=== PATIENT | female | born 1970 ===

== ENCOUNTER 2017-04-30 11:48 | Emergency (ER) | payer OTHER ==
[2017-04-30 12:00] VITALS: RESP 20
[2017-04-30] MEDS ORDERED: Sodium Chloride 0.9% 1,000 ML IV ONE (12:52)
[2017-04-30 12:54] LABS: BASO # 0.1 K/uL (0.0-0.2); BASO % 0.7 % (0.0-2.0); EOS # 0.2 K/uL (0.0-0.7); EOS % 2.6 % (0.0-4.0); HEMATOCRIT 36.7 % (34.0-47.0); LYMPH % 23.6 % (20.0-40.0); MEAN CORPUSCULAR HGB CONC 31.7 g/dL (33.0-37.0); MEAN PLATELET VOLUME 9.4 fL (7.2-11.7); MONO # 0.4 K/uL (0.0-0.8); RED CELL DISTRIBUTION WIDTH 13.1 % (11.5-14.5); WHITE BLOOD COUNT 8.4 K/uL (4.8-10.8)
[2017-04-30 12:57] LABS: MEAN CELL VOLUME 81.8 fL (81.0-99.0)
--- NOTE | 2017-04-30 13:03 | C.PDOC ---
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 Patient states she was getting up to go to the bathroom today and felt hot with associated sweating followed by a syncope episode. Patient had a hysterectomy on 04/21/17 by a Doctor in [place]. Patient called PMD who thought symptoms could relate to surgery and advised she come to ED for evaluation. Patient denies fever, chest pain, leg swelling and patient is eating and drinking normally Time Seen by Provider: 04/30/17 12:25 Chief Complaint (Nursing): Syncope History Per: Patient History/Exam Limitations: no limitations Onset/Duration Of Symptoms: Days Current Symptoms Are (Timing): Still Present Number Of Syncopal Episodes: 1 Activity At Onset Of Symptoms: Walking Seizure Or Post-ictal Symptoms: None Possible Causative Factor(s): Other (recent surgery) Severity: Mild Pain Scale Rating Of: 0 Past Medical History Reviewed: Historical Data, Nursing Documentation, Vital Signs Vital Signs: Last Vital Signs Temp 98 F 04/30/17 11:56 Pulse 80 04/30/17 11:56 Resp 20 04/30/17 11:56 BP 114/74 04/30/17 11:56 Pulse Ox 99 04/30/17 15:03 - Medical History PMH: Anemia Surgical History: Cholecystectomy Other Surgeries: hysterectomy, BTO 04/21 Family History: States: Unknown Family Hx - Social History Hx Tobacco Use: No Hx Alcohol Use: No Hx Substance Use: No - Immunization History Hx Tetanus Toxoid Vaccination: No Hx Influenza Vaccination: No Hx Pneumococcal Vaccination: No Review Of Systems Except As Marked, All Systems Reviewed And Found Negative. Constitutional: Negative for: Fever, Chills Cardiovascular: Negative for: Chest Pain Respiratory: Negative for: Shortness of Breath Neurological: Positive for: Headache Physical Exam - Physical Exam Appears: Non-toxic, No Acute Distress Skin: Normal Color, Warm Head: Atraumatic, Normacephalic Eye(s): bilateral: Normal Inspection Oral Mucosa: Moist Throat: Normal Neck: Normal Cardiovascular: Rhythm Regular, No Murmur Respiratory: Normal Breath Sounds, No Rales, No Rhonchi, No Wheezing Gastrointestinal/Abdominal: Soft, No Tenderness, No Guarding, No Rebound, Other (Suprapubic Incision Healing well) Extremity: Normal ROM, Capillary Refill (<2 seconds) Neurological/Psych: Oriented x3, Normal Speech, Normal Cognition Gait: Steady ED Course And Treatment - Laboratory Results Result Diagrams: 04/30/17 12:35 04/30/17 12:35 Lab Interpretation: Normal ECG: Interpreted By In ECG Rhythm: Sinus Rhythm ECG Interpretation: Normal Rate From EC O2 Sat by Pulse Oximetry: 99 (RA) Pulse Ox Interpretation: Normal - Radiology CXR: Interpreted by In CXR Interpretation: Yes: No Acute Disease - CT Scan/US No standard instances Other Rad Studies (CT/US): Read By Radiologist, Radiology Report Reviewed CT/US Interpretation: FINDINGS: LOWER THORAX: Unremarkable. LIVER: Unremarkable. No gross lesion or ductal dilatation. GALLBLADDER AND BILE DUCTS : Unremarkable. PANCREAS: Unremarkable. No gross lesion or ductal dilatation. SPLEEN: Unremarkable. ADRENALS: Unremarkable. No mass. KIDNEYS AND URETERS: 3-4 mm calculus in the upper pole left kidney and in the lower pole left kidney. No evidence of urinary tract obstruction. No right renal calculus. Rounded hyperdense structure in the upper pole left kidney, 11 mm diameter. Possible hyperdense cyst. Recommend correlation with ultrasound examination on a nonemergent basis. No other renal mass. VASCULATURE: Unremarkable. No aortic aneurysm. BOWEL: Mild sigmoid diverticulosis. Scattered colonic diverticulae elsewhere. No evidence of diverticulitis. No bowel obstruction. APPENDIX: Unremarkable. Normal appendix. PERITONEUM: Unremarkable. No free fluid. No free air. LYMPH NODES: Unremarkable. No enlarged lymph nodes. BLADDER: Unremarkable. REPRODUCTIVE: Unremarkable uterus. BONES: No acute fracture. OTHER FINDINGS: None. IMPRESSION: Two nonobstructing left renal calculi. 11 mm rounded hyperdense lesion in the upper pole left kidney, possibly hyperdense cyst. Correlate with ultrasound examination on a nonemergent basis. Scattered colonic diverticulae. No evidence of diverticulitis. No other significant abnormality. Progress Note: Treated with IVF NSS, reglan and meclizine. On re-evaluation feeling better, ambulating with steady gait Reassessment Condition: Improved Medical Decision Making Medical Decision Making: Plan: Labs, CT scan and Fluids Disposition Counseled Patient/Family Regarding: Studies Performed, Diagnosis, Need For Followup, Rx Given - Disposition Referrals: Manish Campoverde, YU, CHIEF COMMERCIAL OFFICER [Advanced Practice Nurse] - Disposition: HOME/ ROUTINE Disposition Time: 15:15 Condition: STABLE Additional Instructions: Follow up with PMD Return to ED if any increase symptoms Instructions: Syncope (ED), Lightheadedness (ED) - POA Present On Arrival: None - Clinical Impression Clinical Impression: Syncope, Dizziness - PA / GOLDSMITH APPRENTICE / Resident Statement MD/DO has reviewed & agrees with the documentation as recorded. - Scribe Statement The provider has reviewed the documentation as recorded by the Sarinaibjhoana Torre All medical record entries made by the Sarinaibjhoana were at my direction and personally dictated by me. I have reviewed the chart and agree that the record accurately reflects my personal performance of the history, physical exam, medical decision making, and the department course for this patient. I have also personally directed, reviewed, and agree with the discharge instructions and disposition.
[2017-04-30 13:09] LABS: CHLORIDE 98 mmol/L (98-107)
[2017-04-30 13:10] LABS: POTASSIUM 3.8 mmol/L (3.6-5.2); SODIUM 135 mmol/L (132-148)
[2017-04-30 13:13] LABS: ALB/GLOB RATIO 1.3 (1.0-2.1); ALKALINE PHOSPHATASE 64 U/L (38-126); ALT/SGPT 51 U/L (9-52); AST/SGOT 24 U/L (14-36); BILIRUBIN,TOTAL 0.6 mg/dL (0.2-1.3); BLOOD UREA NITROGEN 13 mg/dL (7-17); CALCIUM 9.7 mg/dl (8.6-10.4); CARBON DIOXIDE 23 mmol/L (22-30); GFR AFRICAN-AMERICAN > 60; GLUCOSE,RANDOM 106 mg/dL (65-105); TOTAL PROTEIN 7.7 g/dL (6.3-8.3)
--- NOTE | 2017-04-30 13:45 | CT ---
PROCEDURE: CT HEAD WITHOUT CONTRAST. HISTORY: headache COMPARISON: 11/23/2016 TECHNIQUE: Axial computed tomography images were obtained through the head/brain without intravenous contrast. Radiation dose: Total exam DLP = 717.42 mGy-cm. This CT exam was performed using one or more of the following dose reduction techniques: Automated exposure control, adjustment of the mA and/or kV according to patient size, and/or use of iterative reconstruction technique. FINDINGS: HEMORRHAGE: No intracranial hemorrhage. BRAIN: No mass effect or edema. No atrophy or chronic microvascular ischemic changes. VENTRICLES: Unremarkable. No hydrocephalus. CALVARIUM: Unremarkable. PARANASAL SINUSES: Unremarkable as visualized. No significant inflammatory changes. MASTOID AIR CELLS: Unremarkable as visualized. No inflammatory changes. OTHER FINDINGS: None. IMPRESSION: No evidence of acute intracranial hemorrhage. Unremarkable head CT examination.
--- NOTE | 2017-04-30 13:58 | RAD ---
HISTORY: cough COMPARISON: 06/21/2015 TECHNIQUE: Chest PA and lateral FINDINGS: LUNGS: The lungs are well inflated and clear. PLEURA: No significant pleural effusion identified. No pneumothorax apparent. CARDIOVASCULAR: Normal. OSSEOUS STRUCTURES: No significant abnormalities. VISUALIZED UPPER ABDOMEN: Normal. OTHER FINDINGS: None. IMPRESSION: No active pulmonary disease.
[2017-04-30 14:01] LABS: RBC URINE 1 /hpf (0-3); URINE BILIRUBIN NEGATIVE (NEGATIVE); URINE BLOOD 1+ (NEGATIVE); URINE COLOR Yellow (YELLOW); URINE GLUCOSE (UA) NORMAL (Normal); URINE KETONE NEGATIVE (NEGATIVE); URINE LEUKOCYTE ESTERASE 1+ Leu/uL (Negative); URINE PROTEIN NEGATIVE (NEGATIVE); URINE UROBILINOGEN NORMAL mg/dL (0.2-1.0); WBC URINE 10 /hpf (0-5)
[2017-04-30 15:26] VITALS: BP 110/68; PULSE 72; TEMP 97.9; O2SAT 97
--- NOTE | 2017-05-03 06:48 | CARD ---
APPROVED REPORT EKG Measurement Heart [id number] OR [id number] <Conclusion> Normal sinus rhythm Cannot rule out Anterior infarct, age undetermined Abnormal ECG
== END 2017-04-30 15:24 | disposition home or self-care (01) ==
LOC: C.ER 11:48
DX: R55 Syncope and collapse (principal); R42 Dizziness and giddiness
CPT/HCPCS: 70450; 71020; 80053; 81001; 82948; 84484; 85025; 93005; 96361; 96374; 99285; J2765; J7040

== ENCOUNTER 2017-11-01 18:07 | Inpatient (IN) | payer OTHER ==
--- NOTE | 2017-11-01 18:41 | CT ---
EXAM: CT Head Without Intravenous Contrast CLINICAL HISTORY: 47 years old, female; Pain and signs and symptoms; Dizziness; Headache; Headache not specified; Additional info: Dizziness. Numbness. Headache TECHNIQUE: Axial computed tomography images of the head/brain without intravenous contrast. All CT scans at this facility use one or more dose reduction techniques, viz.: automated exposure control; ma/kV adjustment per patient size (including targeted exams where dose is matched to indication; i.e. head); or iterative reconstruction technique. Coronal and sagittal reformatted images were created and reviewed. COMPARISON: CT - HEAD W/O CONTRAST 2017-04-30 13:35 FINDINGS: Brain: No hemorrhage. No significant white matter disease. No edema. Ventricles: No hydrocephalus. Bones: Skull is intact. Sinuses: No acute sinusitis. Mastoid air cells: No mastoid effusion. IMPRESSION: No CT evidence of acute intracranial abnormality.
[2017-11-01 18:55] LABS: BASO % 0.6 % (0.0-2.0); EOS # 0.1 K/uL (0.0-0.7); EOS % 1.8 % (0.0-4.0); LYMPH # 2.6 K/uL (1.0-4.3); LYMPH % 37.2 % (20.0-40.0); MEAN CELL VOLUME 76.1 fL (81.0-99.0); MEAN CORPUSCULAR HEMOGLOBIN 24.8 pg (27.0-31.0); MEAN CORPUSCULAR HGB CONC 32.6 g/dL (33.0-37.0); MEAN PLATELET VOLUME 9.3 fL (7.2-11.7); MONO # 0.4 K/uL (0.0-0.8); NEUT # 3.8 K/uL (1.8-7.0); NEUT % 54.4 % (50.0-75.0); NRBC % 0.2 % (0.0-2.0); RBC 5.25 Mil/uL (3.80-5.20); RED CELL DISTRIBUTION WIDTH 15.5 % (11.5-14.5); WHITE BLOOD COUNT 7.1 K/uL (4.8-10.8)
[2017-11-01 19:08] LABS: SQUAMOUS EPITHIAL 1 /hpf (0-5); URINE BILIRUBIN NEGATIVE (NEGATIVE); URINE BLOOD NEGATIVE (NEGATIVE); URINE CLARITY Clear (Clear); URINE COLOR Straw (YELLOW); URINE GLUCOSE (UA) NORMAL (Normal); URINE LEUKOCYTE ESTERASE NEG Leu/uL (Negative); URINE NITRATE NEGATIVE (NEGATIVE); URINE PROTEIN NEGATIVE (NEGATIVE); URINE UROBILINOGEN NORMAL mg/dL (0.2-1.0)
[2017-11-01 19:11] LABS: ALBUMIN 4.4 g/dL (3.5-5.0); ALT/SGPT 68 U/L (9-52); AST/SGOT 37 U/L (14-36); BLOOD UREA NITROGEN 13 mg/dL (7-17); CALCIUM 8.8 mg/dl (8.6-10.4); GFR AFRICAN-AMERICAN > 60; GFR NON-AFRICAN AMERICAN > 60; HCG,QUALITATIVE URINE NEGATIVE (NEGATIVE); HDL CHOLESTEROL 58 mg/dL (30-70)
[2017-11-01 19:22] LABS: LDL CHOLESTEROL 147 mg/dL (0-129)
--- NOTE | 2017-11-01 19:58 | C.PDOC ---
History Of Present Illness 47 year old female is sent to the ED from Dr. Rebecca Malone office. Patient called the office stating her BP was elevated, numbness around her mouth, and left body paresthesia. Dr. Feliciano sent the patient to the ED for evaluation, upon arrival patient was anxious speaking pressured and c/o SOB and her left arm feeling heavy. Time Seen by Provider: 11/01/17 18:21 Chief Complaint (Nursing): Weakness/Neurological Deficit History Per: Patient History/Exam Limitations: no limitations Onset/Duration Of Symptoms: Hrs Current Symptoms Are (Timing): Still Present Associated Symptoms Preceding Syncopal Episode: No Predromal Symptoms (Sudden Onset) Seizure Or Post-ictal Symptoms: None Fall Associated With With Symptoms: No Severity: None Recent travel outside of the [place]: No Additional History Per: Patient - Symptoms Of CVA Associated Symptoms: Impaired Speech Character Of Deficits: Left: Weakness, Face: Weakness, Arm: Weakness, Leg: Weakness Recent Aspirin Use: No Current Coumadin Use?: No Recent Head Trauma: No Past Medical History Reviewed: Historical Data, Nursing Documentation, Vital Signs Vital Signs: Last Vital Signs Temp 98 F 11/01/17 21:24 Pulse 100 H 11/01/17 21:24 Resp 20 11/01/17 21:24 BP 122/80 11/01/17 21:24 Pulse Ox 99 11/01/17 21:35 - Medical History PMH: Anemia, HTN, TIA Surgical History: Cholecystectomy Family History: States: Unknown Family Hx - Social History Hx Tobacco Use: No Hx Alcohol Use: No Hx Substance Use: No - Immunization History Hx Tetanus Toxoid Vaccination: No Hx Influenza Vaccination: No Hx Pneumococcal Vaccination: No Review Of Systems Constitutional: Negative for: Fever, Chills Eyes: Negative for: Vision Change Cardiovascular: Negative for: Chest Pain, Palpitations Respiratory: Positive for: Shortness of Breath. Negative for: Cough Gastrointestinal: Negative for: Nausea, Vomiting, Abdominal Pain Musculoskeletal: Negative for: Back Pain Skin: Negative for: Rash Neurological: Positive for: Weakness, Numbness. Negative for: Headache, Dizziness Physical Exam - Physical Exam Appears: Non-toxic, Other (Anxious) Skin: Normal Color, Warm, Dry Head: Atraumatic, Normacephalic Nose: No Discharge, No Deformity Oral Mucosa: Moist Neck: Normal ROM, Supple Chest: Symmetrical Cardiovascular: Rhythm Regular, No Murmur Respiratory: Normal Breath Sounds, No Rhonchi, No Stridor, No Wheezing Gastrointestinal/Abdominal: Soft, No Tenderness, No Distention, No Rebound Extremity: Normal ROM (on all extremities), No Calf Tenderness, No Deformity, No Swelling Neurological/Psych: Oriented x3, Normal Speech (pressured), Normal Cognition, Normal Motor (all for extremeties), Normal Sensation ED Course And Treatment - Laboratory Results Result Diagrams: 11/01/17 18:51 11/01/17 18:51 Lab Interpretation: Normal (LDL elevated) ECG: Interpreted By Me, Viewed By Me ECG Rhythm: Sinus Rhythm ECG Interpretation: Normal Rate From EC O2 Sat by Pulse Oximetry: 99 (On RA) Pulse Ox Interpretation: Normal - Radiology CXR: Interpreted by Me CXR Interpretation: Yes: No Acute Disease - CT Scan/US head CT Other Rad Studies (CT/US): Radiology Report Reviewed (no acute findings.) NIHSS Stroke Scale - Date/Time Evaluation Performed Date Performed: 11/01/17 When Was NIHSS Performed: Baseline - How Severe is the [place]oke Level of Consciousness: 0=Alert LOC to Questions: 0=Both comments correct LOC to commands: 0=Obeys both correctly Best Gaze: 0=Normal Visual: 0=No visual loss Facial: 0=Normal Motor Arm - Left: 0=No drift Motor Arm - Right: 0=No drift Motor Leg - Left: 0=No drift Motor Leg - Right: 0=No drift Limb Ataxia: 0=Absent Sensory: 0=Normal Best Language: 0=No aphasia Dysarthia: 0=Normal articulation Extinction & Inattention (Neglect): 0=Normal, no object Score: 0 Severity Of Stroke: 0= No Stroke rTPA Inclusion/Exclusion - Refusal of Treatment Patient Refused Treatment: No - Inclusion Criteria for Altepase Patient is 18 years or Older: Yes The Clinical Diagnosis of Ischemic Stroke That is Causing a Potentially Disabling Neurological Deficit: No Time of Onset is Well Established to be Less Than 270 Minute Before Treatment Would Begin: Yes Risk/Benefit Discussed With Patient/Family Member Present: No - Exclusion Criteria for Altepase Uncontrolled Hypertension at Time of Treatment (Systolic BP above 185 or Diastolic BP above 110 mmHg): No Known Bleeding Diathesis Including but Not Limited to: Platelets Below 100,000/ mm,PTT Above 40 sec After Heparin Use, Current Use of Oral Anitcoagulant With INR Greater Than 1.7 or PT Greater Than 15 secs: No Evidence of an Intracranial Hemorrhage: No Evidence of Major Acute Infarct With Signs Greater Than 1/3 MCA Territory: No Suspicion of Subarachnoid Hemorrhage on Pretreatment Evaluation Even if CT Head Negative For Hemorrhage: No - Warning to TPA With Conditions Following Conditions Weighed Against Anticipated Benefit: Yes Condition: Stroke Serevity Too Mild, Rapid Improvement Medical Decision Making Medical Decision Making: Plan: * EKG * CT head * CXR * Blood work * Lopressor 50 mg PO * Trandate 200 mg PO * Xanax 0.25 mg PO * UA 18:15- code stroke was called 18:45 CT head was read negative, spoke with Dr. Rossi who said she had seen the patient before and prescribed her Plavix that she reports taking daily. circumaural parasthesias associated with panic/anxiety/SOB and "heaviness" of L side of body may be TIA vs panic/anxiety. Asymptomatic aside from anxiety on arrival. Plan: Disposition Doctor Will See Patient In The: Hospital Counseled Patient/Family Regarding: Studies Performed, Diagnosis - Disposition Disposition: HOSPITALIZED Disposition Time: 19:59 Condition: GOOD - Clinical Impression Clinical Impression: Weakness of limb, Anxiety - Scribe Statement The provider has reviewed the documentation as recorded by the Scribe Fabrice Zuleta All medical record entries made by the Scribe were at my direction and personally dictated by me. I have reviewed the chart and agree that the record accurately reflects my personal performance of the history, physical exam, medical decision making, and the department course for this patient. I have also personally directed, reviewed, and agree with the discharge instructions and disposition.
--- NOTE | 2017-11-01 23:29 | CP.PCM.HP ---
Past Patient History - Past Social History Smoking Status: Never Smoked - CARDIAC Hx Hypertension: Yes - NEUROLOGICAL Hx Transient Ischemic Attacks (TIA): Yes - HEMATOLOGICAL/ONCOLOGICAL Hx Anemia: Yes - GENITOURINARY/GYNECOLOGICAL Hx Genitourinary Disorders: Yes Other/Comment: Endometriosis - PSYCHIATRIC Hx Substance Use: No - SURGICAL HISTORY Hx Cholecystectomy: Yes - ANESTHESIA Hx Anesthesia: Yes Meds Allergies/Adverse Reactions: Allergies Allergy/AdvReac Type Severity Reaction Status Date / Time No Known Allergies Allergy Verified 04/30/17 12:00 Results - Vital Signs Recent Vital Signs: Last Vital Signs Temp 98 F 11/01/17 22:15 Pulse 80 11/01/17 22:15 Resp 18 11/01/17 22:15 BP 122/86 11/01/17 22:15 Pulse Ox 100 11/01/17 22:15 - Labs Result Diagrams: 11/01/17 18:51 11/01/17 18:51 Labs: Laboratory Results - last 24 hr 11/01/17 11/01/17 11/01/17 18:51 18:51 18:51 WBC 7.1 RBC 5.25 H Hgb 13.0 Hct 39.9 MCV 76.1 L D MCH 24.8 L MCHC 32.6 L RDW 15.5 H Plt Count 243 MPV 9.3 Neut % (Auto) 54.4 Lymph % (Auto) 37.2 [place] % (Auto) 6.0 Eos % (Auto) 1.8 Baso % (Auto) 0.6 Neut # 3.8 Lymph # 2.6 [place] # 0.4 Eos # 0.1 Baso # 0.0 PT 11.0 INR 1.0 APTT 32 Sodium 135 Potassium 4.0 Chloride 97 L Carbon Dioxide 28 Anion Gap 14 BUN 13 Creatinine 0.7 Est GFR ( Amer) > 60 Est GFR (Non-Af Amer) > 60 Random Glucose 111 H Calcium 8.8 Total Bilirubin 0.5 AST 37 H ALT 68 H D Alkaline Phosphatase 86 Troponin I < 0.0120 Total Protein 8.8 H Albumin 4.4 Globulin 4.4 H Albumin/Globulin Ratio 1.0 Triglycerides 196 H Cholesterol 236 H LDL Cholesterol Direct 147 H HDL Cholesterol 58 Urine Color Urine Clarity Urine pH Ur Specific [place] Urine Protein Urine Glucose (UA) Urine Ketones Urine Blood Urine Nitrate Urine Bilirubin Urine Urobilinogen Ur Leukocyte Esterase Ur Squamous Epith Cells Urine HCG, Qual Blood Type Antibody Screen 11/01/17 11/01/17 18:51 18:51 WBC RBC Hgb Hct MCV MCH MCHC RDW Plt Count MPV Neut % (Auto) Lymph % (Auto) [place] % (Auto) Eos % (Auto) Baso % (Auto) Neut # Lymph # [place] # Eos # Baso # PT INR APTT Sodium Potassium Chloride Carbon Dioxide Anion Gap BUN Creatinine Est GFR ( Amer) Est GFR (Non-Af Amer) Random Glucose Calcium Total Bilirubin AST ALT Alkaline Phosphatase Troponin I Total Protein Albumin Globulin Albumin/Globulin Ratio Triglycerides Cholesterol LDL Cholesterol Direct HDL Cholesterol Urine Color Straw Urine Clarity Clear Urine pH 7.0 Ur Specific [place] 1.006 Urine Protein Negative Urine Glucose (UA) Normal Urine Ketones Negative Urine Blood Negative Urine Nitrate Negative Urine Bilirubin Negative Urine Urobilinogen Normal Ur Leukocyte Esterase Neg Ur Squamous Epith Cells 1 Urine HCG, Qual Negative Blood Type B POSITIVE Antibody Screen Negative
[2017-11-02] MEDS: Sodium Chloride 0.45% 1,000 ML IV SCH ×2 (00:32→13:48)
[2017-11-02 01:56] VITALS: RESP 20
--- NOTE | 2017-11-02 08:22 | RAD ---
HISTORY: stroke alert COMPARISON: Comparison is made to 04/30/2017 FINDINGS: LUNGS: No active pulmonary disease. PLEURA: No significant pleural effusion identified, no pneumothorax apparent. CARDIOVASCULAR: Normal. OSSEOUS STRUCTURES: No significant abnormalities. VISUALIZED UPPER ABDOMEN: Normal. OTHER FINDINGS: None. IMPRESSION: No active disease.
[2017-11-02] MEDS: Enoxaparin 40 mg Syringe SC SCH (13:51)
--- NOTE | 2017-11-02 15:15 | CP.PCM.CON ---
History of Present Illness - History of Present Illness History of Present Illness: 47 y/o presents with numbness tingling tounge, disequilibrium, Headace, dizzinessm vertiginous sx's and L. sided weakness gradual onset since 2 days. Patient with hx of probably vasovagal syncope and head consussion 2 days after hysterectomy discharge in 04/2017: since recurrent episodes of above. Had thorough neuro eval as outpatient with MRI negative, EEG with Dr. Rossi. > working diagnosis thought to be vestibulopthy, vertigo She denies any palpitation, syncope, chest pain or CHF symptoms She denies any significant medical problems asided from prior hx of anemia due to vaginal bleeding. She notes BP has been sporadically increasing ever since April 2017 and recently was given amlodipine 2.5 to control it. She also reports recent development of hyperlipidemia. 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 Review of Systems - Review of Systems All systems: reviewed and no additional remarkable complaints except Past Patient History - Past Medical History & Family History Past Medical History?: Yes - Past Social History Smoking Status: Never Smoked - CARDIAC Hx Cardiac Disorders: Yes Hx Hypertension: Yes - PULMONARY Hx Respiratory Disorders: No - NEUROLOGICAL Hx Neurological Disorder: Yes Hx Transient Ischemic Attacks (TIA): Yes - HEENT Hx HEENT Problems: No - RENAL Hx Chronic Kidney Disease: No - ENDOCRINE/METABOLIC Hx Endocrine Disorders: Yes - HEMATOLOGICAL/ONCOLOGICAL Hx Blood Disorders: Yes Hx Anemia: Yes - INTEGUMENTARY Hx Dermatological Problems: No - MUSCULOSKELETAL/RHEUMATOLOGICAL Hx Musculoskeletal Disorders: No Hx Falls: No - GASTROINTESTINAL Hx Gastrointestinal Disorders: No - GENITOURINARY/GYNECOLOGICAL Hx Genitourinary Disorders: Yes Other/Comment: Endometriosis - PSYCHIATRIC Hx Psychophysiologic Disorder: No Hx Substance Use: No - SURGICAL HISTORY Hx Surgeries: Yes Hx Cholecystectomy: Yes - ANESTHESIA Hx Anesthesia: Yes Meds Allergies/Adverse Reactions: Allergies Allergy/AdvReac Type Severity Reaction Status Date / Time No Known Allergies Allergy Verified 04/30/17 12:00 - Medications Medications: Current Medications Aspirin (Aspirin) 325 mg PO DAILY [facility] Last Admin: 11/02/17 10:02 Dose: 325 mg Clopidogrel Bisulfate (Plavix) 75 mg PO DAILY [facility] Last Admin: 11/02/17 10:02 Dose: 75 mg Enoxaparin Sodium (Lovenox) 40 mg SC DAILY [facility] Last Admin: 11/02/17 13:51 Dose: 40 mg Sodium Chloride (Sodium Chloride 0.45%) 1,000 mls @ 80 mls/hr IV .[id number] [facility] Stop: 11/03/17 00:00 Last Admin: 11/02/17 13:48 Dose: Not Given Rosuvastatin Calcium (Crestor) 10 mg PO HS [facility] Last Admin: 11/02/17 00:31 Dose: 10 mg Physical Exam - Constitutional Appears: No Acute Distress - Head Exam Head Exam: ATRAUMATIC, NORMAL INSPECTION, NORMOCEPHALIC - Eye Exam Eye Exam: EOMI, Normal appearance, PERRL - ENT Exam ENT Exam: Mucous Membranes Moist, Normal Oropharynx - Neck Exam Neck exam: Positive for: Full Rom. Negative for: Tenderness - Respiratory Exam Respiratory Exam: Clear to Auscultation Bilateral, NORMAL BREATHING PATTERN. absent: Rhonchi, Wheezes - Cardiovascular Exam Cardiovascular Exam: REGULAR RHYTHM, +S1. absent: +S4, Systolic Murmur - GI/Abdominal Exam GI & Abdominal Exam: Normal Bowel Sounds, Soft. absent: Tenderness - Extremities Exam Extremities exam: Positive for: normal inspection. Negative for: calf tenderness, pedal edema - Neurological Exam Neurological exam: Alert, Oriented x3 Additional comments: LUE power 4/5 - Psychiatric Exam Psychiatric exam: Normal Affect, Normal Mood - Skin Skin Exam: Normal Color, Warm Results - Vital Signs Recent Vital Signs: Last Vital Signs Temp 98.0 F 11/02/17 07:15 Pulse 83 11/02/17 07:15 Resp 20 11/02/17 07:15 BP 107/65 11/02/17 07:15 Pulse Ox 100 11/02/17 07:15 - Labs Result Diagrams: 11/01/17 18:51 11/01/17 18:51 Labs: Laboratory Results - last 24 hr 11/01/17 11/01/17 11/01/17 18:51 18:51 18:51 WBC 7.1 RBC 5.25 H Hgb 13.0 Hct 39.9 MCV 76.1 L D MCH 24.8 L MCHC 32.6 L RDW 15.5 H Plt Count 243 MPV 9.3 Neut % (Auto) 54.4 Lymph % (Auto) 37.2 Simpson % (Auto) 6.0 Eos % (Auto) 1.8 Baso % (Auto) 0.6 Neut # 3.8 Lymph # 2.6 Simpson # 0.4 Eos # 0.1 Baso # 0.0 PT 11.0 INR 1.0 APTT 32 Sodium 135 Potassium 4.0 Chloride 97 L Carbon Dioxide 28 Anion Gap 14 BUN 13 Creatinine 0.7 Est GFR ( Amer) > 60 Est GFR (Non-Af Amer) > 60 POC Glucose (mg/dL) Random Glucose 111 H Hemoglobin A1c Calcium 8.8 Total Bilirubin 0.5 AST 37 H ALT 68 H D Alkaline Phosphatase 86 Troponin I < 0.0120 Total Protein 8.8 H Albumin 4.4 Globulin 4.4 H Albumin/Globulin Ratio 1.0 Triglycerides 196 H Cholesterol 236 H LDL Cholesterol Direct 147 H HDL Cholesterol 58 Urine Color Urine Clarity Urine pH Ur Specific Lehr Urine Protein Urine Glucose (UA) Urine Ketones Urine Blood Urine Nitrate Urine Bilirubin Urine Urobilinogen Ur Leukocyte Esterase Ur Squamous Epith Cells Urine HCG, Qual Blood Type Antibody Screen 11/01/17 11/01/17 11/01/17 18:51 18:51 18:51 WBC RBC Hgb Hct MCV MCH MCHC RDW Plt Count MPV Neut % (Auto) Lymph % (Auto) Simpson % (Auto) Eos % (Auto) Baso % (Auto) Neut # Lymph # Simpson # Eos # Baso # PT INR APTT Sodium Potassium Chloride Carbon Dioxide Anion Gap BUN Creatinine Est GFR ( Amer) Est GFR (Non-Af Amer) POC Glucose (mg/dL) Random Glucose Hemoglobin A1c 6.0 Calcium Total Bilirubin AST ALT Alkaline Phosphatase Troponin I Total Protein Albumin Globulin Albumin/Globulin Ratio Triglycerides Cholesterol LDL Cholesterol Direct HDL Cholesterol Urine Color Straw Urine Clarity Clear Urine pH 7.0 Ur Specific Lehr 1.006 Urine Protein Negative Urine Glucose (UA) Normal Urine Ketones Negative Urine Blood Negative Urine Nitrate Negative Urine Bilirubin Negative Urine Urobilinogen Normal Ur Leukocyte Esterase Neg Ur Squamous Epith Cells 1 Urine HCG, Qual Negative Blood Type B POSITIVE Antibody Screen Negative 11/02/17 11/02/17 06:07 11:44 WBC RBC Hgb Hct MCV MCH MCHC RDW Plt Count MPV Neut % (Auto) Lymph % (Auto) Simpson % (Auto) Eos % (Auto) Baso % (Auto) Neut # Lymph # Simpson # Eos # Baso # PT INR APTT Sodium Potassium Chloride Carbon Dioxide Anion Gap BUN Creatinine Est GFR ( Amer) Est GFR (Non-Af Amer) POC Glucose (mg/dL) 106 123 H Random Glucose Hemoglobin A1c Calcium Total Bilirubin AST ALT Alkaline Phosphatase Troponin I Total Protein Albumin Globulin Albumin/Globulin Ratio Triglycerides Cholesterol LDL Cholesterol Direct HDL Cholesterol Urine Color Urine Clarity Urine pH Ur Specific Lehr Urine Protein Urine Glucose (UA) Urine Ketones Urine Blood Urine Nitrate Urine Bilirubin Urine Urobilinogen Ur Leukocyte Esterase Ur Squamous Epith Cells Urine HCG, Qual Blood Type Antibody Screen Assessment & Plan - Assessment and Plan (Free Text) Assessment: 47 y/o with neurologic sx's since 48 hours > Head CT negative > Prior outpatient MRI 08/2017: no significant abnormalities No hx of AFIB or sx's of arrythmia Recent HTN Recent lipids Plan: 1. echo to eval cardiac structure and function --> doubt cardiac etiology 2. agree with ASA 81 and plavix 75 daily 3. Agree with crestor: LDL is 145 4. Discussed case with covering Neurologist: plan to continue TELE monitoring, eventual MRI/MRA 5. Suggest evaluation for celiac disease or gluten allergy if can be done inpatient * I was planning to add amlodipine 5mg daily but since BP is normal range will defer for now * Low Na, low cholesterol diet.
--- NOTE | 2017-11-02 18:39 | CP.PCM.PN ---
Subjective - Date & Time of Evaluation Date of Evaluation: 11/02/17 Time of Evaluation: 13:00 Objective - Vital Signs/Intake and Output Vital Signs (last 24 hours): Temp Pulse Resp BP Pulse Ox 98.4 F 99 H 20 144/92 H 98 11/02/17 15:18 11/02/17 15:18 11/02/17 15:18 11/02/17 15:18 11/02/17 15:18 Intake and Output: 11/02/17 11/02/17 06:59 18:59 Intake Total 590 640 Balance 590 640 - Medications Medications: Current Medications Aspirin (Aspirin) 325 mg PO DAILY [facility] Last Admin: 11/02/17 10:02 Dose: 325 mg Clopidogrel Bisulfate (Plavix) 75 mg PO DAILY [facility] Last Admin: 11/02/17 10:02 Dose: 75 mg Enoxaparin Sodium (Lovenox) 40 mg SC DAILY [facility] Last Admin: 11/02/17 13:51 Dose: 40 mg Sodium Chloride (Sodium Chloride 0.45%) 1,000 mls @ 80 mls/hr IV .[id number] [facility] Stop: 11/03/17 00:00 Last Admin: 11/02/17 13:48 Dose: Not Given Rosuvastatin Calcium (Crestor) 10 mg PO HS [facility] Last Admin: 11/02/17 00:31 Dose: 10 mg - Labs Labs: 11/01/17 18:51 11/01/17 18:51 PT 11.0 SECONDS (9.7-12.2) 11/01/17 18:51 INR 1.0 11/01/17 18:51 APTT 32 SECONDS (21-34) 11/01/17 18:51
--- NOTE | 2017-11-02 23:22 | CON ---
DATE: NEUROLOGY CONSULTATION REFERRING PHYSICIAN: Nicole Soler MD. REASON FOR CONSULTATION: Perioral numbness, left-sided weakness. HISTORY OF PRESENT ILLNESS: The patient is a 47-year-old lady with past medical history of severe head trauma in end of April after hysterectomy. The patient was admitted because of tongue and perioral numbness and tingling and left facial numbness associated with left arm heaviness and numbness and tingling in addition to right leg numbness and right arm funny feeling. The symptoms started yesterday. The patient's blood pressure has been fluctuating for the last few days, diastolic is usually above 105 to 115 and the systolic is between 130 to 145, which usually is normal. The patient's symptoms resolved except for left arm numbness and tingling and heaviness and left-sided neck pain. The patient had similar episode in the past and was seen by Dr. Rossi, had extensive workup including MRI of the brain and EEG and then video-monitoring EEG. No underlying etiology was identified. The patient states that her symptoms initially started after the head trauma. The patient after the surgery while getting off the bathroom, she fell down and hit her head against a hard surface and associated with loss of consciousness for 5 minutes and the patient was diaphoretic after and complaining from severe headache. The patient was taken to the emergency room and the patient had a CAT scan and then discharged. The patient's symptoms fluctuated until August, the patient had an episode of headaches, dizziness, vertigo, facial numbness, tingling, not as strong as this episode this time. Since April, the patient has been having fluctuating headaches, occasionally severe associated with decreased attention span, short-term memories, slow mental processing, decreased concentration and occasionally having difficulty expressing herself and repeating words as per her mother. The patient states that since the fall, she is not herself at all. Always, she has some symptoms. The patient's symptoms are triggered by concentration and working mentally more than physically. The patient had MRI of the brain, did not reveal significant finding. No MRI of the cervical spine. PAST MEDICAL HISTORY: As mentioned above. FAMILY HISTORY: Noncontributory. SOCIAL HISTORY: Nonsmoker. No ethanol or drug abuser. ALLERGY: NO KNOWN ALLERGIC REACTION TO MEDICATION. CURRENT MEDICATIONS: Only blood pressure medications. PAST SURGICAL HISTORY: Status post cholecystectomy and hysterectomy. REVIEW OF SYSTEMS: As per H and P and ER notes reviewed. PHYSICAL EXAMINATION: VITAL SIGNS: Blood pressure 122/80, pulse 100, respirations 20, temperature 98. Initially, the patient states that lately her heart rate is in 130s and 140s associated with hypertension. NEUROLOGIC: Mental state: The patient is alert, awake, oriented x3. Normal naming, repetition, comprehension. No agnosia. No apraxia. Slightly decreased attention span and short-term memory. The patient has difficulty spelling orange forward and backward. Unable to spell world backward and window backward. Upon repeating the months backward, she missed 1 month and calculation is impaired as well, although the patient went to high school, completed her high school. Cranial nerves pupils 3 mm bilaterally active. No facial asymmetry. No nystagmus. No double vision. No blurred vision. The patient is gazing to the right and left triggering her headaches and dizziness. No facial palsy. V1 to V3 asymmetric and slightly decreased on the left side of the face. No field defect. Tongue midline. Gag intact. No perioral sensory deficit. Motor: Tenderness in left paraspinal muscle, trapezius, supraspinatus with limited range of neck movement. Positive Spurling sign to the left. Upper extremities, right deltoid, elbow and finishing wire sawyer 5/5, left deltoid 5-/5, elbow 5/5, finishing wire sawyer 4/5. Lower extremities, left hip flexion 5-/5, knee 5/5, ankle dorsiflexion 5 to 5-/5. Plantar extension 5/5. The patient's right hip, knee, ankle 5/5. The patient having difficulty standing on the toes on the left side and heel on the left side as well. On the right is intact. Romberg is positive. The patient is unable to walk tandem. Deep tendon reflexes 2 in upper and lower extremities. No clonus, plantarflexion on both side. Plantarflexion on the right compared to the left. Sensory: Decreased pinprick, light touch on the left side of the body. Coordination: [id number] intact. LABORATORY DATA: The patient had MRI of the brain 2 weeks ago, did not reveal significant finding. IMPRESSION: The patient has transient perioral numbness, tongue numbness and tingling, left-sided weakness, transient left arm numbness and right leg numbness and tingling and still there is some residual weakness. Differential diagnoses: 1. Transient ischemic attack versus brainstem cerebrovascular accident. 2. Vertebrobasilar disease. 3. Postconcussion syndrome, possibility of brainstem axonal injury is highly likely. To confirm that, the patient may need brainstem auditory evoked potential, although the MRI did not reveal significant finding done 2 weeks ago. 4. High cervical etiology, extramedullary or intramedullary etiology. PLAN: The patient will need repeat MRI of the brain and MRA and carotid Doppler and if negative, I will definitely do MRI of the cervical spine to rule out high cervical herniated disc. I will consider starting the patient on amitriptyline for her posttraumatic and postconcussion syndrome and headache. In addition, Depakote 250 mg BID. p.r.n. We will consider that after the workup. I have discussed the case also with the prepress technician. The patient would be started on aspirin 81 mg plus Plavix for now. All her questions and concerns were answered at length. Thank you for the consultation. I will discuss the case with Dr. Rossi as well. Rashel Mansfield MD [facility]
[2017-11-03 08:29] VITALS: BP 111/74; PULSE 85; TEMP 97.5; O2SAT 100
[2017-11-03] MEDS: Enoxaparin 40 mg Syringe SC SCH (09:12)
--- NOTE | 2017-11-03 19:53 | PN ---
DATE: ATTENDING PHYSICIAN: Nicole Soler MD. SUBJECTIVE: Patient is awake, alert. Patient feels significantly better than yesterday. Patient stated that, "my all symptoms resolved, no more numbness or tingling of the hands, no more weakness, this is my baseline and I wanted to go home." Unfortunately, as per hospital policy, despite strong recommendation to have the MRI, unfortunately that did not happen despite the nurse spoke with the supervisor coil springs. Patient's at bedside is upset because of patient staying in the hospital and because the MRI was not done. PAST MEDICAL HISTORY: Major head trauma in April 2017 and since that time, the symptoms basically started and escalated and fluctuating at times more severe than other times. PHYSICAL EXAMINATION: VITAL SIGNS: Blood pressure 111/74, pulse 85, respirations 20, temperature 97.5. NEUROLOGICAL: Mental State: The patient is alert, awake, oriented x3. Normal naming, repetition, comprehension. No agnosia. No apraxia. Cranial Nerves: Pupils symmetric and reactive. No facial asymmetry. V1 to V3 today is intact, yesterday was asymmetrical. No field defect. Motor: Normal tone in upper extremities. There is minimal framing carpenter weakness on the left side probably secondary to the IV line; otherwise, no focal motor deficit or asymmetry. IMPRESSION: Posttraumatic headache and posttraumatic syndrome. MRI of the brain needs to be done to rule out new cerebrovascular accident because of the persistent symptoms for more than almost 24 hours. An MRI to rule out vertebrobasilar disease. Patient will need a brainstem auditory evoked potential to rule out brainstem dysfunction secondary to strong head trauma and possibility of external injury although the MRI did not reveal significant findings which was not done early after the event and was done 2 weeks ago and the MRI was negative. The patient might benefit from amitriptyline 10 mg at night and p.r.n. Depakote for her headaches 250 mg b.i.d. p.r.n. I will discuss the case with Dr. Rossi. Based on the findings on MRI and MRA, further management may be considered, but I will strongly recommend MRI of the cervical spine if no findings seen on the MRI of the brain and MRA. Thank you for the consultation and Dr. Rossi will follow the patient tomorrow. Rashel Mansfield MD [facility] # [id number]
--- NOTE | 2017-11-04 13:18 | CARD ---
APPROVED REPORT EKG Measurement Heart [id number] <Conclusion> Poor data quality, interpretation may be adversely affected Normal sinus rhythm Cannot rule out Anterior infarct, age undetermined Abnormal ECG
== END 2017-11-03 14:28 | disposition home or self-care (01) | DRG 103 ==
LOC: C.ER 18:07 → C.9E 19:53 → C.6T 20:54
PROVIDERS: ADMIT Internal Medicine Nephrology; ATTEND Internal Medicine Nephrology
DX: G44.309 Post-traumatic headache, unspecified, not intractable (principal); F07.81 Postconcussional syndrome; S09.90XA Unspecified injury of head, initial encounter; E78.5 Hyperlipidemia, unspecified; F41.9 Anxiety disorder, unspecified; I10 Essential (primary) hypertension; R29.810 Facial weakness; W19.XXXA Unspecified fall, initial encounter; Z86.73 Personal history of transient ischemic attack (TIA), and cerebral infarction without residual deficits; Z90.710 Acquired absence of both cervix and uterus; D50.0 Iron deficiency anemia secondary to blood loss (chronic)

== ENCOUNTER 2018-03-27 15:09 | Inpatient (IN) | payer OTHER ==
[2018-03-27] MEDS ORDERED: Sodium Chloride 0.9% 1,000 ML IV SCH (15:45)
--- NOTE | 2018-03-27 15:45 | C.PDOC ---
History Of Present Illness 47 y/o female with a PMHx of HTN sent in by neurologist for evaluation of possible stroke due to left-sided numbness, onset today. Patient reports that 3 days ago she felt a sensation of fluid in her ear, followed by dizziness and a pressure-like sensation in her throat. She checked her pressure and noted her diastolic pressure was > 100, which is higher than usual for her. Yesterday she developed a throbbing headache, described as pressure-like and burning, in addition to the dizziness, ear sensation, and throat sensation. This morning at work she also developed numbness and paresthesias in her left lower extremity, as well as left foot cramping. She then went to see her neurologist, Dr. Rossi, and was referred to come to the ED. On further discussion, patient has had similar episodes of the same symptoms 4-5x over the past 6 months, which gradually develop over the course of a few days. She was admitted here for the same complaints around 11/02/17, and had a CT Head and later an outpatient MRI which showed no bleeding. The MRI did reveal bulging discs at C4-C5. Otherwise patient denies any memory loss, slurred speech, facial droop, visual loss, nausea, vomiting, chest pain, SOB, fever, chills, or other associated symptoms. Time Seen by Provider: 03/27/18 15:40 Chief Complaint (Nursing): Headache History Per: Patient History/Exam Limitations: no limitations Onset/Duration Of Symptoms: Days Current Symptoms Are (Timing): Still Present Quality: Burning, Pressure Additional History Per: Family Past Medical History Reviewed: Historical Data, Nursing Documentation, Vital Signs Vital Signs: Last Vital Signs Temp 98.2 F 03/27/18 15:28 Pulse 96 H 03/27/18 16:40 Resp 20 03/27/18 16:40 BP 122/80 03/27/18 16:40 Pulse Ox 99 03/27/18 16:50 - Medical History PMH: Anemia, HTN, TIA Denies: Chronic Kidney Disease Surgical History: Cholecystectomy Other Surgeries: Hysterectomy Family History: States: Unknown Family Hx - Social History Hx Tobacco Use: No Hx Alcohol Use: No Hx Substance Use: No - Immunization History Hx Tetanus Toxoid Vaccination: No Hx Influenza Vaccination: No Hx Pneumococcal Vaccination: No Review Of Systems Except As Marked, All Systems Reviewed And Found Negative. Constitutional: Negative for: Fever, Chills Eyes: Negative for: Vision Change ENT: Positive for: Throat Pain, Other (Ear sensation) Cardiovascular: Negative for: Chest Pain Respiratory: Negative for: Cough, Shortness of Breath Neurological: Positive for: Weakness (left-sided), Numbness (left lower extremity), Headache, Dizziness. Negative for: Incoordination, Change in Speech , Confusion, Altered Mental Status Physical Exam - Physical Exam Appears: Non-toxic, No Acute Distress Skin: Normal Color, Warm, Dry Head: Atraumatic, Normacephalic Eye(s): bilateral: Normal Inspection, PERRL, EOMI Nose: Normal Oral Mucosa: Moist Teeth: Normal Dentition Neck: Normal ROM, Supple (and non-tender) Chest: Symmetrical Cardiovascular: Rhythm Regular, No Murmur Respiratory: Normal Breath Sounds, No Rales, No Rhonchi, No Wheezing Gastrointestinal/Abdominal: Normal Exam, Soft, No Tenderness, No Distention Back: Normal Inspection, No CVA Tenderness, No Vertebral Tenderness Extremity: Normal ROM, No Pedal Edema, No Calf Tenderness Extremity: Bilateral: Atraumatic, Normal Color And Temperature Pulses: Left Dorsalis Pedis: Normal, Right Dorsalis Pedis: Normal Neurological/Psych: Oriented x3, Normal Speech, Normal Cranial Nerves, Cerebellar Signs (normal), Normal Motor (with slight weakness with strength exercises of the left neck, arm, and lower extremity), Normal Sensation, No Dysarthria Gait: Steady Other Neurological Findings: No Facial Palsy Extremity: Left: No Drift, Upper: No Drift, Lower: No Drift ED Course And Treatment - Laboratory Results Result Diagrams: 03/27/18 15:47 03/27/18 15:47 O2 Sat by Pulse Oximetry: 99 (RA) Pulse Ox Interpretation: Normal - CT Scan/US CT Head Other Rad Studies (CT/US): Read By Radiologist, Radiology Report Reviewed CT/US Interpretation: Accession No. : [id number]. Patient Name / ID : ERIC PROCTOR / [id number]. Exam Date : 03/27/2018 15:53:53 ( Approved ). Study Comment : Sex / Age : F / 47Y. Creator : Laurie Abdalla. Dictator : Cam Jones MD. Lock Setter : Commercial Airline Pilot : Cam Jones MD. Approver2 : Report Date : 03/27/2018 15:55:41. My Comment : . PROCEDURE: CT HEAD WITHOUT CONTRAST. HISTORY: Code Stroke. COMPARISON: Unenhanced head CT 11/01/2017. TECHNIQUE: Axial computed tomography images were obtained through the head/brain without intravenous contrast. Radiation dose: Total exam DLP = 690.63 mGy-cm. This CT exam was performed using one or more of the following dose reduction techniques: Automated exposure control, adjustment of the mA and/or kV according to patient size, and/or use of iterative reconstruction technique. FINDINGS: HEMORRHAGE: No intracranial hemorrhage. BRAIN: Normal coffman-white matter differentiation and density are appreciated throughout the cerebrum and cerebellum with the brainstem appearing unremarkable as well. There is no mass effect. There is no suspicious extra- axial fluid collection and the midline brain anatomy appears diffusely unremarkable. . VENTRICLES: Unremarkable. No hydrocephalus. CALVARIUM: Unremarkable. PARANASAL SINUSES: Unremarkable as visualized. No significant inflammatory changes. MASTOID AIR CELLS: Unremarkable as visualized. No inflammatory changes. OTHER FINDINGS: None. IMPRESSION: Stable unremarkable unenhanced head CT compared to prior head CT 11/01/2017. Discussed with Dr. Clayton with written down and read back verification 03/27/2018 3:57 p.m.. CTA Head/Neck Other Rad Studies (CT/US): Read By Radiologist, Radiology Report Reviewed CT/US Interpretation: Accession No. : [id number]. Patient Name / ID : ERIC PROCTOR / [id number]. Exam Date : 03/27/2018 15:57:24 ( Approved ). Study Comment : Sex / Age : F / 47Y. Creator : Laurie Abdalla. Dictator : Cam Jones MD. Lock Setter : Commercial Airline Pilot : Cam Jones MD. Approver2 : Report Date : 03/27/2018 16:01:12. My Comment : . PROCEDURE: CT Angiography of the Brain. HISTORY: left side numbness. COMPARISON: None available. TECHNIQUE: CT angiography of the intracranial and neck arteries was performed. Coronal and sagittal maximum intensity projection reformatted images were generated. Contrast Dose: Visipaque 320, 100 cc. Radiation dose:Total exam DLP = 468.73 mGy-cm. This CT exam was performed using one or more of the following dose reduction techniques: Automated exposure control, adjustment of the mA and/or kV according to patient size, and/ or use of iterative reconstruction technique. FINDINGS: INTERNAL CEREBRAL ARTERIES: Unremarkable. The skull base, petrous, cavernous and supraclinoid segments are bilaterally widely patent. ANTERIOR CEREBRAL ARTERIES: Unremarkable. A1 and A2 segments are widely patent. Smaller distal branches unremarkable, as visualized. MIDDLE CEREBRAL ARTERIES: Unremarkable. M1 and M2 segments are widely patent. Perisylvian branches grossly symmetric. POSTERIOR CIRCULATION: Basilar Artery: Unremarkable. Distal Vertebral Arteries : Unremarkable. Posterior Cerebral Arteries: Unremarkable. Posterior Inferior Cerebellar Arteries: Unremarkable. NECK CTA: Common Carotid arteries: The bilateral common carotid appear widely patent from their origins to their bifurcations with no significant stenosis appreciated. No evidence to suggest common carotid artery dissection. Internal Carotid arteries: No significant stenosis is appreciated throughout the cervical internal carotid artery segments bilaterally and there is no evidence of dissection either. There is prominent ectasis of the proximal and distal cervical segments left ICA . External Carotid arteries: Appear unremarkable bilaterally. Vertebral arteries : The bilateral vertebral arteries appear normal in caliber from their origins to their junction with the basilar artery. No significant stenosis or definite pattern of dissection. ANEURYSM/ VASCULAR MALFORMATIONS: None. OTHER FINDINGS : None. IMPRESSION: Unremarkable CT Angiography of the Brain and Neck. Chest X-Ray Other Rad Studies (CT/US): Read By Radiologist, Radiology Report Reviewed CT/US Interpretation: Accession No. : [id number]. Patient Name / ID : ERIC PROCTOR / [id number]. Exam Date : 03/27/2018 16:15:05 ( Approved ). Study Comment : Sex / Age : F / 47Y. Creator : Cam Jones MD. Dictator : Cam Jones MD. Lock Setter : Commercial Airline Pilot : Cam Jones MD. Approver2 : Report Date : 03/27/2018 16:20:21. My Comment : . HISTORY: Code Stroke. COMPARISON: Portable chest 11/01/2017. FINDINGS: LUNGS: No active pulmonary disease. PLEURA: No significant pleural effusion identified, no pneumothorax apparent. CARDIOVASCULAR: Normal. OSSEOUS STRUCTURES: No significant abnormalities. VISUALIZED UPPER ABDOMEN: Normal. OTHER FINDINGS: None. IMPRESSION: No interval acute cardiopulmonary disease appreciated. NIHSS Stroke Scale - Date/Time Evaluation Performed Date Performed: 03/27/18 Time Performed: 15:46 When Was NIHSS Performed: Baseline - How Severe is the Stoke Level of Consciousness: 0=Alert LOC to Questions: 0=Both comments correct LOC to commands: 0=Obeys both correctly Best Gaze: 0=Normal Visual: 0=No visual loss Facial: 0=Normal Motor Arm - Left: 0=No drift Motor Arm - Right: 0=No drift Motor Leg - Left: 0=No drift Motor Leg - Right: 0=No drift Limb Ataxia: 0=Absent Sensory: 1=Mild to moderate loss Best Language: 0=No aphasia Dysarthia: 0=Normal articulation Extinction & Inattention (Neglect): 0=Normal, no object Score: 1 Severity Of Stroke: 1-4= Minor Stroke Medical Decision Making Medical Decision Makin:40 Patient immediately seen and evaluated at bedside. Stroke Alert initiated. Initial orders: * CT Head * CTA Head/Neck * EKG * Blood work * Chest x-ray * IV fluids * Paged Stroke Team 15:42 Stroke Alert discussed with Dr. Greenwood, neurology on-call, who agrees with current management and recommends repeating MRI studies. 15:[address] negative CT result by Dr. Mayers. Prior records reviewed from Dr. Chiu office and prior admissions: An EEG in 08/2017 was normal MRI Head in 08/2017 was normal Carotid duplex study in 09/2017 was unremarkable 16:35 Case discussed w/ Dr. Rossi, who requests patient be admitted. 16:46 Discussed with hospitalist on-call, Dr. Cohen, Disposition Discussed With Dr.: Chris Greenwood Doctor Will See Patient In The: Hospital Counseled Patient/Family Regarding: Studies Performed, Need For Followup - Disposition Disposition: HOSPITALIZED Disposition Time: 16:51 Condition: GUARDED Forms: [facility] ([place]) - POA Present On Arrival: None - Clinical Impression Clinical Impression: Stroke - Scribe Statement The provider has reviewed the documentation as recorded by the Rui Miguel Provider Attestation: All medical record entries made by the Sarinaibjhoana were at my direction and personally dictated by me. I have reviewed the chart and agree that the record accurately reflects my personal performance of the history, physical exam, medical decision making, and the department course for this patient. I have also personally directed, reviewed, and agree with the discharge instructions and disposition. Decision To Admit - Pt Status Changed To: Hospital Disposition Of: Inpatient - Admit Certification Admit to Inpatient:: After my assessment, the patient will require hospitalization for at least two midnights. This is because of the severity of symptoms shown, intensity of services needed, and/or the medical risk in this patient being treated as an outpatient. - InPatient: Physician Admission Certification: I certify that this patient requires 2 or more midnights of care for the following reason:: possible stroke, VB insuficiency, left sided weakness - . Bed Request Type: Telemetry Patient Diagnosis: Stroke
[2018-03-27] MEDS ORDERED: Iodixanol 320 MG/ML 100 ML BOTTLE IV ONE (15:48)
[2018-03-27 15:53] LABS: BASO # 0.1 K/uL (0.0-0.2); BASO % 0.8 % (0.0-2.0); EOS # 0.2 K/uL (0.0-0.7); HEMOGLOBIN 14.5 g/dL (11.0-16.0); LYMPH # 3.1 K/uL (1.0-4.3); LYMPH % 40.7 % (20.0-40.0); MEAN CORPUSCULAR HEMOGLOBIN 25.4 pg (27.0-31.0); MEAN PLATELET VOLUME 9.2 fL (7.2-11.7); MONO # 0.4 K/uL (0.0-0.8); MONO % 5.1 % (0.0-10.0); NEUT # 3.8 K/uL (1.8-7.0); NEUT % 50.4 % (50.0-75.0); NRBC % 0.2 % (0.0-2.0); RBC 5.71 Mil/uL (3.80-5.20); RED CELL DISTRIBUTION WIDTH 15.6 % (11.5-14.5); WHITE BLOOD COUNT 7.6 K/uL (4.8-10.8)
--- NOTE | 2018-03-27 16:00 | CT ---
PROCEDURE: CT HEAD WITHOUT CONTRAST. HISTORY: Code Stroke COMPARISON: Unenhanced head CT 11/01/2017. TECHNIQUE: Axial computed tomography images were obtained through the head/brain without intravenous contrast. Radiation dose: Total exam DLP = 690.63 mGy-cm. This CT exam was performed using one or more of the following dose reduction techniques: Automated exposure control, adjustment of the mA and/or kV according to patient size, and/or use of iterative reconstruction technique. FINDINGS: HEMORRHAGE: No intracranial hemorrhage. BRAIN: Normal coffman-white matter differentiation and density are appreciated throughout the cerebrum and cerebellum with the brainstem appearing unremarkable as well. There is no mass effect. There is no suspicious extra-axial fluid collection and the midline brain anatomy appears diffusely unremarkable. . VENTRICLES: Unremarkable. No hydrocephalus. CALVARIUM: Unremarkable. PARANASAL SINUSES: Unremarkable as visualized. No significant inflammatory changes. MASTOID AIR CELLS: Unremarkable as visualized. No inflammatory changes. OTHER FINDINGS: None. IMPRESSION: Stable unremarkable unenhanced head CT compared to prior head CT 11/01/2017. Discussed with Dr. Clayton with written down and read back verification 03/27/2018 3:57 p.m..
[2018-03-27 16:05] LABS: ALB/GLOB RATIO 1.4 (1.0-2.1); ALBUMIN 5.3 g/dL (3.5-5.0); ALT/SGPT 71 U/L (9-52); AST/SGOT 47 U/L (14-36); BLOOD UREA NITROGEN 12 mg/dL (7-17); CALCIUM 9.9 mg/dl (8.6-10.4); GFR AFRICAN-AMERICAN > 60; GFR NON-AFRICAN AMERICAN > 60; HDL CHOLESTEROL 61 mg/dL (30-70)
[2018-03-27 16:07] LABS: PROTHROMBIN TIME 10.7 SECONDS (9.7-12.2)
[2018-03-27 16:17] LABS: LDL CHOLESTEROL 78 mg/dL (0-129)
--- NOTE | 2018-03-27 16:21 | CT ---
PROCEDURE: CT Angiography of the Brain. HISTORY: left side numbness COMPARISON: None available. TECHNIQUE: CT angiography of the intracranial and neck arteries was performed. Coronal and sagittal maximum intensity projection reformatted images were generated. Contrast Dose: Visipaque 320, 100 cc Radiation dose:Total exam DLP = 468.73 mGy-cm. This CT exam was performed using one or more of the following dose reduction techniques: Automated exposure control, adjustment of the mA and/or kV according to patient size, and/or use of iterative reconstruction technique. FINDINGS: INTERNAL CEREBRAL ARTERIES: Unremarkable. The skull base, petrous, cavernous and supraclinoid segments are bilaterally widely patent. ANTERIOR CEREBRAL ARTERIES: Unremarkable. A1 and A2 segments are widely patent. Smaller distal branches unremarkable, as visualized. MIDDLE CEREBRAL ARTERIES: Unremarkable. M1 and M2 segments are widely patent. Perisylvian branches grossly symmetric. POSTERIOR CIRCULATION: Basilar Artery: Unremarkable. Distal Vertebral Arteries: Unremarkable. Posterior Cerebral Arteries: Unremarkable. Posterior Inferior Cerebellar Arteries: Unremarkable. NECK CTA: Common Carotid arteries: The bilateral common carotid appear widely patent from their origins to their bifurcations with no significant stenosis appreciated. No evidence to suggest common carotid artery dissection. Internal Carotid arteries: No significant stenosis is appreciated throughout the cervical internal carotid artery segments bilaterally and there is no evidence of dissection either. There is prominent ectasis of the proximal and distal cervical segments left ICA . External Carotid arteries: Appear unremarkable bilaterally. Vertebral arteries: The bilateral vertebral arteries appear normal in caliber from their origins to their junction with the basilar artery. No significant stenosis or definite pattern of dissection. ANEURYSM/ VASCULAR MALFORMATIONS: None. OTHER FINDINGS: None. IMPRESSION: Unremarkable CT Angiography of the Brain and Neck.
--- NOTE | 2018-03-27 16:22 | RAD ---
HISTORY: Code Stroke COMPARISON: Portable chest 11/01/2017. FINDINGS: LUNGS: No active pulmonary disease. PLEURA: No significant pleural effusion identified, no pneumothorax apparent. CARDIOVASCULAR: Normal. OSSEOUS STRUCTURES: No significant abnormalities. VISUALIZED UPPER ABDOMEN: Normal. OTHER FINDINGS: None. IMPRESSION: No interval acute cardiopulmonary disease appreciated.
--- NOTE | 2018-03-27 17:45 | CP.PCM.HP ---
History of Present Illness - History of Present Illness History of Present Illness: Medicine Note For Hospitalist Service - Dr. Lynch CC: headache HPI: 47 year old female with PMHx Questionable TIA x 3 episodes in the span < 1 year, ??Vestibular Basilar Insufficiency, Concussion in 2017, HTN, Headaches, GERD presents with headache, dizziness, neck pain that radiates up the back of her head, left sided upper and lower extremity weakness. This is the 4th episode in the span of < 1 year. Episodes started shortly after her hysterectomy April 2016, shortly after she sustained a concussion. She reports a prodrome where she experiences left sided ear fullness, facial numbness/ tingling that radiates down her upper and lower left extremity, and then ultimately neck pain that radiates to the left part of the back of her head. Associated with headache, dizziness, vertigo, decrease in sensation and strength on her left side. She has had extensive workup with Cardiology and Neurology as outpatient, which has been unremarkable until this time. Denied fever, chills, headache, chest pain, SOB, abdominal pain, n/v/d/c, or urinary symptoms. PMHx: Questionable TIA x 3 episodes in the span < 1 year, ??Vestibular Basilar Insufficiency, Concussion in 2017, HTN, Headaches, GERD PSHx: Hysterectomy 2/ menorrhagia (April 2017), cholecystectomy Meds: As per JAN, reviewed and confirmed All: NKDA SHx: Denied any tobacco, alcohol, or illicit drug use FHx: Unremarkable PMD: Sworkin Cardio: Ronda Neuro: Flo ENT: Behin Heme/ Onc: Upphadyha Present on Admission - Present on Admission Any Indicators Present on Admission: No Past Patient History - Past Medical History & Family History Past Medical History?: Yes - Past Social History Smoking Status: Never Smoked - CARDIAC Hx Hypertension: Yes - PULMONARY Hx Respiratory Disorders: No - NEUROLOGICAL Hx Transient Ischemic Attacks (TIA): Yes - HEENT Hx HEENT Problems: No - RENAL Hx Chronic Kidney Disease: No - ENDOCRINE/METABOLIC Hx Endocrine Disorders: Yes - HEMATOLOGICAL/ONCOLOGICAL Hx Anemia: Yes - INTEGUMENTARY Hx Dermatological Problems: No - MUSCULOSKELETAL/RHEUMATOLOGICAL Hx Musculoskeletal Disorders: No Hx Falls: No - GASTROINTESTINAL Hx Gastrointestinal Disorders: No - GENITOURINARY/GYNECOLOGICAL Hx Genitourinary Disorders: Yes Other/Comment: Endometriosis - PSYCHIATRIC Hx Substance Use: No - SURGICAL HISTORY Hx Cholecystectomy: Yes - ANESTHESIA Hx Anesthesia: Yes Hx Anesthesia Reactions: No Meds Allergies/Adverse Reactions: Allergies Allergy/AdvReac Type Severity Reaction Status Date / Time No Known Allergies Allergy Verified 04/30/17 12:00 Physical Exam - Constitutional Appears: No Acute Distress - Head Exam Head Exam: NORMAL INSPECTION, NORMOCEPHALIC - Eye Exam Eye Exam: EOMI, Normal appearance, PERRL. absent: Nystagmus, Scleral icterus Pupil Exam: NORMAL ACCOMODATION, PERRL. absent: Miosis, Mydriatic - ENT Exam ENT Exam: Mucous Membranes Moist - Neck Exam Neck exam: Positive for: Full Rom, Normal Inspection, Tenderness. Negative for : Lymphadenopathy, Thyromegaly - Respiratory Exam Respiratory Exam: Clear to Auscultation Bilateral, NORMAL BREATHING PATTERN. absent: Decreased Breath Sounds, Rales, Rhonchi, Wheezes - Cardiovascular Exam Cardiovascular Exam: REGULAR RHYTHM, RRR - GI/Abdominal Exam GI & Abdominal Exam: Normal Bowel Sounds, Soft. absent: Distended, Tenderness - Rectal Exam Rectal Exam: Deferred - Extremities Exam Extremities exam: Positive for: normal inspection, pedal pulses present. Negative for: pedal edema, tenderness - Back Exam Back exam: NORMAL INSPECTION. absent: CVA tenderness (L), CVA tenderness (R), muscle spasm, paraspinal tenderness, rash noted, tenderness, vertebral tenderness - Neurological Exam Neurological exam: Alert, CN II-XII Intact, Oriented x3 - Expanded Neurological Exam Expanded Patient oriented to: person, place, time Cranial nerves: EOM's Intact: Normal, Facial Palsey w/Forehead Movement: Normal , Facial Palsey w/o Forehead Movement: Normal, Facial Sensation: Normal, Gag Reflex: Normal Ataxia: No Cerebellar Function: Finger to Nose: Normal, Heel to Montes: Normal, Romberg: Normal Upper motor neuron: Babinski Sign: Normal, Kevin Neglect: Normal, Pronator Drift : Normal, Sensory Extinction: Normal Sensory exam: Lower Extremity 2 Point Discrimination: Normal, Lower Extremity Light Touch: Normal, Lower Extremity Pin Prick: Normal, Lower Extremity Temperature: Normal, Upper Extremity 2 Point Discrimination: Normal, Upper Extremity Light Touch: Normal, Upper Extremity Pin Prick: Normal, Upper Extremity Temperature: Normal Neuro motor strength exam: Left Upper Extremity: 4, Right Upper Extremity: 5, Left Lower Extremity: 4, Right Lower Extremity: 5 - Psychiatric Exam Psychiatric exam: Normal Affect, Normal Mood - Skin Skin Exam: Dry, Intact, Normal Color, Warm Results - Vital Signs Recent Vital Signs: Last Vital Signs Temp 98.2 F 03/27/18 15:28 Pulse 96 H 03/27/18 16:40 Resp 20 03/27/18 16:40 BP 122/80 03/27/18 16:40 Pulse Ox 99 03/27/18 16:52 - Labs Result Diagrams: 03/27/18 15:47 03/27/18 15:47 Labs: Laboratory Results - last 24 hr 03/27/18 03/27/18 03/27/18 15:47 15:47 15:47 WBC 7.6 RBC 5.71 H Hgb 14.5 Hct 43.9 MCV 77.0 L MCH 25.4 L MCHC 33.0 RDW 15.6 H Plt Count 229 MPV 9.2 Neut % (Auto) 50.4 Lymph % (Auto) 40.7 H Monroe % (Auto) 5.1 Eos % (Auto) 3.0 Baso % (Auto) 0.8 Neut # (Auto) 3.8 Lymph # (Auto) 3.1 Monroe # (Auto) 0.4 Eos # (Auto) 0.2 Baso # (Auto) 0.1 PT 10.7 INR 1.0 APTT 35 H Sodium 144 Potassium 4.3 Chloride 102 Carbon Dioxide 28 Anion Gap 18 BUN 12 Creatinine 0.6 L Est GFR ( Amer) > 60 Est GFR (Non-Af Amer) > 60 Random Glucose 102 Hemoglobin A1c Calcium 9.9 Total Bilirubin 0.6 AST 47 H D ALT 71 H Alkaline Phosphatase 121 Troponin I < 0.0120 Total Protein 9.1 H Albumin 5.3 H D Globulin 3.8 Albumin/Globulin Ratio 1.4 Triglycerides 91 D Cholesterol 173 LDL Cholesterol Direct 78 HDL Cholesterol 61 Blood Type Antibody Screen 03/27/18 03/27/18 15:47 15:47 WBC RBC Hgb Hct MCV MCH MCHC RDW Plt Count MPV Neut % (Auto) Lymph % (Auto) Monroe % (Auto) Eos % (Auto) Baso % (Auto) Neut # (Auto) Lymph # (Auto) Monroe # (Auto) Eos # (Auto) Baso # (Auto) PT INR APTT Sodium Potassium Chloride Carbon Dioxide Anion Gap BUN Creatinine Est GFR ( Amer) Est GFR (Non-Af Amer) Random Glucose Hemoglobin A1c 5.8 Calcium Total Bilirubin AST ALT Alkaline Phosphatase Troponin I Total Protein Albumin Globulin Albumin/Globulin Ratio Triglycerides Cholesterol LDL Cholesterol Direct HDL Cholesterol Blood Type B POSITIVE Antibody Screen Negative Assessment & Plan - Assessment and Plan (Free Text) Plan: Rule Out TIA/ CVA Hx of Questionable TIA/ CVA Hx Concussion Hx Headaches Concern for Vestibular Basilar Artery Insufficiency - Patient's personal neurologist - Dr. Rossi - sent patient in for observation; help appreciated - Code Stroke Alert - Dr. Greenwood- help appreciated Imaging: - Head CT: Stable unremarkable unenhanced head CT compared to prior head CT . - Head/ Neck CTA, Brain MRI, Head & Neck MRA - unremarkable - Cervical Spine MRI: Mild multilevel degenerative disc disease, worse at C4-5 with a small central disc protrusion. No spinal canal stenosis or neural foraminal narrowing. Normal appearance of the cervical cord. No intrinsic cord signal abnormality to suggest demyelinating disease. - F/U ECHO Management: - Fiorecet PRN for headaches, Reglan PRN - Plavix 75mg daily, Crestor 10mg QHS - Follow - autoimmune workup - Follow up swallow eval - PT/OT eval Hypothyroidism - Diagnosed 2 months ago - started on medication (unknown name; dose 60mg PO daily) - Thyroid ultrasound: no nodules noted (despite nodules seen on previous ultrasound that patient has a copy of the report) - TSH, Free T4 - WNL Hx HTN - Restarted Norvasc 10mg daily Hx GERD - Started Protonix 40mg IVP daily, Tums Transaminitis - Continue to monitor Prophylaxis - GI PPX: Protonix IVP - DVT PPX: SCDs - PT/ OT - NPO currently due to failing bedside swallow eval, pending official eval DW Dr. Lynch, Mercedez Stokes DO, PGY-1
--- NOTE | 2018-03-27 17:54 | MRI ---
PROCEDURE: MRI BRAIN WITHOUT CONTRAST HISTORY: waxing and waning stroke symptoms COMPARISON: Noncontrast head CT performed earlier the same day. TECHNIQUE: Multiplanar, multisequence MR images of the brain were obtained without intravenous contrast enhancement. FINDINGS: HEMORRHAGE: None DWI: No evidence of an acute or early subacute infarction. BRAIN PARENCHYMA: There are mild chronic microangiopathic changes. There is no mass, mass effect or abnormal extra-axial fluid collection. There is no territorial infarction. The midline sagittal structures are normal. VENTRICLES: The ventricles are normal in size, shape and configuration. CRANIUM: There is normal bone marrow signal pattern. ORBITS: Grossly unremarkable. PARANASAL SINUSES/MASTOIDS: Predominantly clear. VASCULAR SYSTEM: There are normal signal voids in the larger intracranial arteries. OTHER FINDINGS: None. IMPRESSION: No acute intracranial abnormality.
--- NOTE | 2018-03-27 17:59 | MRI ---
PROCEDURE: Magnetic Resonance Angiography Brain HISTORY: waxing and waining stroke symptoms COMPARISON: None available. TECHNIQUE: 3D time of flight MR angiography of the intracranial arteries was performed. Rotating maximum intensity projection images were generated. FINDINGS: INTERNAL CAROTID ARTERIES: Normal flow related signal. The skull base, petrous, cavernous and supraclinoid segments are bilaterally widely patient. ANTERIOR CEREBRAL ARTERIES: Normal flow related signal. A1 and A2 segments are widely patent. Smaller distal branches unremarkable, as visualized. MIDDLE CEREBRAL ARTERIES: Normal flow related signal. M1 and M2 segments are widely patent. Perisylvian branches grossly symmetric. POSTERIOR CIRCULATION: Basilar Artery: Normal flow related signal. Distal Vertebral Arteries: Normal flow related signal. The left vertebral artery is dominant, an anatomic variant. Posterior Cerebral Arteries: Normal flow related signal. Posterior Inferior Cerebellar Arteries: Normal flow related signal. ANEURYSM/ VASCULAR MALFORMATIONS: None. OTHER FINDINGS: None. IMPRESSION: Normal MR angiography of the brain.
--- NOTE | 2018-03-27 18:12 | MRI ---
PROCEDURE: MR Angiography of the neck without contrast HISTORY: waxing and waning stroke symptoms COMPARISON: None available. TECHNIQUE: 3D [id number] angiography of the neck was performed. Rotating maximum intensity projection images of the cervical carotid and vertebral arteries were generated. The origins of the common carotid arteries were not visualized, which is a limitation inherent to the non-contrast time of flight technique. FINDINGS: RIGHT CAROTID ARTERIES: Common Carotid Artery: Normal. Carotid Bifurcation: Normal. Internal Carotid Artery:Normal. External Carotid Artery (proximal branches): Normal. LEFT CAROTID ARTERIES: Common Carotid Artery: Normal. Carotid Bifurcation: Normal. Internal Carotid Artery:Normal. External Carotid Artery (proximal branches): Normal. VERTEBRAL ARTERIES: Right Vertebral Artery: Normal. Left Vertebral Artery: Normal. OTHER FINDINGS: None. IMPRESSION: Normal MR Angiography of the neck.
[2018-03-27] MEDS ORDERED: Dextrose 5%/0.9% NS 1,000 ML IV SCH (18:15)
--- NOTE | 2018-03-27 18:16 | MRI ---
PROCEDURE: MR CERVICAL SPINE WITHOUT CONTRAST HISTORY: waxing and waning stroke symptoms COMPARISON: None available. TECHNIQUE: Multiecho multiplanar sequences were performed through the cervical spine without the use of intravenous contrast. FINDINGS: There is normal alignment of the cervical vertebral bodies. There is normal cervical lordosis. There is no acute fracture or spondylolisthesis. The craniocervical junction is normal. The atlantoaxial joint is normal. Bone marrow signal is within normal limits. The cervical cord is normal in contour, caliber and has normal intrinsic signal. C2-C3: Mild disc osteophyte complex without spinal canal stenosis or neural foraminal narrowing. C3-C4: Small disc osteophyte complex without spinal canal stenosis or neural foraminal narrowing. C4-C5: Central disc protrusion without spinal canal stenosis or neural foraminal narrowing. C5-C6: No disc herniation, spinal canal stenosis or neural foraminal narrowing. C6-C7: No disc herniation, spinal canal stenosis or neural foraminal narrowing. C7-T1: No disc herniation, spinal canal stenosis or neural foraminal narrowing. OTHER FINDINGS: The paraspinous soft tissues are normal. No prevertebral soft tissue thickening. IMPRESSION: Mild multilevel degenerative disc disease, worse at C4-5 with a small central disc protrusion. No spinal canal stenosis or neural foraminal narrowing. Normal appearance of the cervical cord. No intrinsic cord signal abnormality to suggest demyelinating disease.
[2018-03-27] MEDS ORDERED: Apap-Butalbital-Caffeine 325-50-40mg Tab PO PRN (19:25)
[2018-03-27] MEDS ORDERED: Apap-Butalbital-Caffeine 325-50-40mg Tab PO STA (19:29)
[2018-03-27] MEDS ORDERED: Calcium Carbonate 500 mg Chewable Antacid Tab PO PRN (19:36)
--- NOTE | 2018-03-27 23:11 | US ---
EXAM: US Soft Tissues Head and Neck, Thyroid CLINICAL HISTORY: 47 years old, female; Signs and symptoms; Other: HX of thyroid nodule TECHNIQUE: Real-time ultrasound scan of the thyroid gland and soft tissues of the neck with image documentation. COMPARISON: No relevant prior studies available. FINDINGS: Left thyroid lobe: Heterogeneous. Left thyroid lobe measures 3.2 x 0.9 x 0.9 CM. 0.4 x 0.3 x 0.3 CM mid pole cyst. No enlarged or calcified nodules. Right thyroid lobe: Heterogeneous. Right thyroid lobe measures 3.7 x 1.3 x 1.4 CM. No enlarged or calcified nodules. Isthmus: Measures 0.3 CM in thickness. Pain anterior cysts measuring 0.4 x 0.2 x 0.4 CM. No enlarged or calcified nodules. Lymph nodes: Unremarkable. No lymphadenopathy. IMPRESSION: Heterogeneous gland. No discrete nodules.
[2018-03-28 00:19] VITALS: RESP 20
[2018-03-28 07:50] LABS: BASO % 0.9 % (0.0-2.0); EOS # 0.2 K/uL (0.0-0.7); EOS % 3.5 % (0.0-4.0); LYMPH # 2.6 K/uL (1.0-4.3); MEAN CELL VOLUME 76.8 fL (81.0-99.0); MEAN CORPUSCULAR HEMOGLOBIN 25.3 pg (27.0-31.0); MEAN CORPUSCULAR HGB CONC 32.9 g/dL (33.0-37.0); MEAN PLATELET VOLUME 9.7 fL (7.2-11.7); MONO # 0.3 K/uL (0.0-0.8); MONO % 5.6 % (0.0-10.0); NEUT # 2.1 K/uL (1.8-7.0); NRBC % 0.1 % (0.0-2.0); RBC 4.85 Mil/uL (3.80-5.20); RED CELL DISTRIBUTION WIDTH 15.7 % (11.5-14.5); WHITE BLOOD COUNT 5.3 K/uL (4.8-10.8)
[2018-03-28 08:06] LABS: HEMOGLOBIN 12.3 g/dL (11.0-16.0)
[2018-03-28 08:11] LABS: ALB/GLOB RATIO 1.2 (1.0-2.1); ALBUMIN 3.6 g/dL (3.5-5.0); ALT/SGPT 61 U/L (9-52); AST/SGOT 43 U/L (14-36); BLOOD UREA NITROGEN 11 mg/dL (7-17); GFR AFRICAN-AMERICAN > 60; GFR NON-AFRICAN AMERICAN > 60
--- NOTE | 2018-03-28 11:56 | CP.PCM.DIS ---
Provider - Provider Date of Admission: 03/27/18 16:52 Attending physician: Abhinav Cohen MD Primary care physician: Ariana Consults: Neurology: Dr. Espinoza Time Spent in preparation of Discharge (in minutes): 45 Diagnosis - Discharge Diagnosis (1) TIA (transient ischemic attack) Status: Resolved (2) Hypothyroidism Status: Chronic (3) Hypertension Status: Chronic (4) Iron deficiency anemia Status: Chronic (5) GERD (gastroesophageal reflux disease) Status: Chronic Hospital Course - Lab Results Lab Results: Most Recent Lab Values WBC 5.3 K/uL (4.8-10.8) 03/28/18 07: RBC 4.85 Mil/uL (3.80-5.20) 03/28/18 07:26 Hgb 12.3 g/dL (11.0-16.0) D 03/28/18 07: Hct 37.3 % (34.0-47.0) 03/28/18 07: MCV 76.8 fL (81.0-99.0) L 03/28/18 07: MCH 25.3 pg (27.0-31.0) L 03/28/18 07: MCHC 32.9 g/dL (33.0-37.0) L 03/28/18 07:26 RDW 15.7 % (11.5-14.5) H 03/28/18 07:26 Plt Count 193 K/uL (130-400) 03/28/18 07: MPV 9.7 fL (7.2-11.7) 03/28/18 07: Neut % (Auto) 40.0 % (50.0-75.0) L 03/28/18 07:26 Lymph % (Auto) 50.0 % (20.0-40.0) H 03/28/18 07:26 [place] % (Auto) 5.6 % (0.0-10.0) 03/28/18 07: Eos % (Auto) 3.5 % (0.0-4.0) 03/28/18 07: Baso % (Auto) 0.9 % (0.0-2.0) 03/28/18 07: Neut # (Auto) 2.1 K/uL (1.8-7.0) 03/28/18 07:26 Lymph # (Auto) 2.6 K/uL (1.0-4.3) 03/28/18 07:26 [place] # (Auto) 0.3 K/uL (0.0-0.8) 03/28/18 07:26 Eos # (Auto) 0.2 K/uL (0.0-0.7) 03/28/18 07:26 Baso # (Auto) 0.0 K/uL (0.0-0.2) 03/28/18 07:26 ESR 9 mm/hr (0-20) 03/28/18 07: PT 10.7 SECONDS (9.7-12.2) 03/27/18 15:47 INR 1.0 03/27/18 15:47 APTT 35 SECONDS (21-34) H 03/27/18 15:47 Sodium 142 mmol/L (132-148) 03/28/18 07:26 Potassium 4.0 mmol/L (3.6-5.2) 03/28/18 07:26 Chloride 106 mmol/L (98-107) 03/28/18 07:26 Carbon Dioxide 25 mmol/L (22-30) 03/28/18 07:26 Anion Gap 16 (10-20) 03/28/18 07:26 BUN 11 mg/dL (7-17) 03/28/18 07:26 Creatinine 0.6 mg/dL (0.7-1.2) L 03/28/18 07:26 Est GFR ( Amer) > 60 03/28/18 07:26 Est GFR (Non-Af Amer) > 60 03/28/18 07:26 POC Glucose (mg/dL) 103 mg/dL (65-110) 03/27/18 15:27 Random Glucose 114 mg/dL (65-105) H 03/28/18 07:26 Hemoglobin A1c 5.8 % (4.2-6.5) 03/27/18 15:47 Calcium 9.0 mg/dl (8.6-10.4) 03/28/18 07:26 Phosphorus 4.7 mg/dL (2.5-4.5) H 03/28/18 07:26 Magnesium 1.8 mg/dL (1.6-2.3) 03/28/18 07:26 Total Bilirubin 0.5 mg/dL (0.2-1.3) 03/28/18 07:26 AST 43 U/L (14-36) H 03/28/18 07:26 ALT 61 U/L (9-52) H 03/28/18 07:26 Alkaline Phosphatase 86 U/L (38-126) 03/28/18 07:26 Troponin I < 0.0120 ng/mL (0.00-0.120) 03/27/18 15:47 C-Reactive Protein < 5.00 mg/L (0.0-9.9) 03/28/18 07:26 Total Protein 6.6 g/dL (6.3-8.3) 03/28/18 07: Albumin 3.6 g/dL (3.5-5.0) 03/28/18 07: Globulin 3.0 gm/dL (2.2-3.9) 03/28/18 07: Albumin/Globulin Ratio 1.2 (1.0-2.1) 03/28/18 07:26 Triglycerides 91 mg/dL (0-149) D 03/27/18 15:47 Cholesterol 173 mg/dL (0-199) 03/27/18 15:47 LDL Cholesterol Direct 78 mg/dL (0-129) 03/27/18 15:47 HDL Cholesterol 61 mg/dL (30-70) 03/27/18 15:47 Free T4 0.82 ng/dL (0.78-2.19) 03/27/18 22:17 TSH 3rd Generation 0.95 mIU/L (0.46-4.68) 03/27/18 22:17 Blood Type B POSITIVE 03/27/18 15:47 Antibody Screen Negative 03/27/18 15:47 - Hospital Course Hospital Course: 47 year old female with past medical history of questionable 3 TIA within 1 year , vestibular Basilar Insufficiency, Concussion in 2017 with residual neck pain, hypertension, GERD presents with headache, dizziness, neck pain that radiates up the back of her head, left sided upper and lower extremity weakness. This is the 4th episode in the span of less than 1 year. Episodes started shortly after her hysterectomy April 2016, shortly after she sustained a concussion. She reports a prodrome where she experiences left sided ear fullness, facial numbness/ tingling that radiates down her upper and lower left extremity, and then ultimately neck pain that radiates to the left part of the back of her head. Associated with headache, dizziness, vertigo, decrease in sensation and strength on her left side. She has had extensive workup with Cardiology and Neurology as outpatient, which has been unremarkable until this time. Denied fever, chills, slurred of speech, facial droop, headache, chest pain, SOB, abdominal pain or urinary symptoms. She reports of recent diagnoses of hypothyroidism. While in the ED patient was evaluated and had a NIHSS of 1 ( mild to moderate sensory loss) and received CTA of head and neck which was unremarkable. She also had a failed swallow screen Neurologist match up person recommended MRI studies. Overnight, patient's symptoms resolved without acute interventions. Patient passed the swallow screening in the morning. Brain MRI, neck MRA, and head MRA were all unremarkable. However, patient's MRI of cervical spine showed mild multilevel degenerative disc disease worse at C4-5, which is consistent with her previous MRI neck findings. Thyroid ultrasound showed heterogeneous gland with no discrete nodules. Patient was then evaluated by neurology Dr. Espinoza whom recommended patient to follow up as outpatient. Patient was instructed to obtain test results at medical records department if needed. She follow up with PMD, Heme/onc, and cardiology after hospital discharge for further workup or medication adjustments. Patient understood and agreed with the treatment plan. This is a summary of patient's hospitalization. Please see EMR for further details. Patient may resume the following home medications: omeprazole 40mg, amlodipine 10mg, PM Thyroid 60mg, Crestor 10mg, Plavix 75mg - Date & Time of H&P Date of H&P: 03/27/18 Time of H&P: 17:45 Discharge Exam - Head Exam Head Exam: NORMAL INSPECTION, NORMOCEPHALIC - Additional Findings Additional findings: - Constitutional Appears: No Acute Distress - Head Exam Head Exam: NORMAL INSPECTION, NORMOCEPHALIC - Eye Exam Eye Exam: EOMI, Normal appearance, PERRL. absent: Nystagmus, Scleral icterus Pupil Exam: NORMAL ACCOMODATION, PERRL. absent: Miosis, Mydriatic - ENT Exam ENT Exam: Mucous Membranes Moist - Neck Exam Neck exam: Positive for: Full Rom, Normal Inspection, Tenderness. Negative for : Lymphadenopathy, Thyromegaly - Respiratory Exam Respiratory Exam: Clear to Auscultation Bilateral, NORMAL BREATHING PATTERN. absent: Decreased Breath Sounds, Rales, Rhonchi, Wheezes - Cardiovascular Exam Cardiovascular Exam: REGULAR RHYTHM, RRR - GI/Abdominal Exam GI & Abdominal Exam: Normal Bowel Sounds, Soft. absent: Distended, Tenderness - Rectal Exam Rectal Exam: Deferred - Extremities Exam Extremities exam: Positive for: normal inspection, pedal pulses present. Negative for: pedal edema, tenderness - Back Exam Back exam: NORMAL INSPECTION. absent: CVA tenderness (L), CVA tenderness (R), muscle spasm, paraspinal tenderness, rash noted, tenderness, vertebral tenderness - Neurological Exam Neurological exam: Alert, CN II-XII Intact, Oriented x3 - Expanded Neurological Exam Expanded Patient oriented to: person, place, time Cranial nerves: EOM's Intact: Normal, Facial Palsey w/Forehead Movement: Normal , Facial Palsey w/o Forehead Movement: Normal, Facial Sensation: Normal, Gag Reflex: Normal Ataxia: No Cerebellar Function: Finger to Nose: Normal, Heel to Montes: Normal, Romberg: Normal Upper motor neuron: Babinski Sign: Normal, Kevin Neglect: Normal, Pronator Drift : Normal, Sensory Extinction: Normal Sensory exam: Lower Extremity 2 Point Discrimination: Normal, Lower Extremity Light Touch: Normal, Lower Extremity Pin Prick: Normal, Lower Extremity Temperature: Normal, Upper Extremity 2 Point Discrimination: Normal, Upper Extremity Light Touch: Normal, Upper Extremity Pin Prick: Normal, Upper Extremity Temperature: Normal Neuro motor strength exam: Left Upper Extremity: 5, Right Upper Extremity: 5, Left Lower Extremity: 5, Right Lower Extremity: 5 - Psychiatric Exam Psychiatric exam: Normal Affect, Normal Mood - Skin Skin Exam: Dry, Intact, Normal Color, Warm Discharge Plan - Follow Up Plan Condition: GUARDED Disposition: HOME/ ROUTINE Instructions: Hypothyroidism (Underactive Thyroid), Acid Reflux ( Gastroesophageal Reflux Disease), Adult (DC), High Blood Pressure (DC), Transient Ischemic Attack (DC) Additional Instructions: Patient is to follow up with PMD and Dr. Espinoza within 1 week of hospital discharge for medication adjustments Patient is also to follow up with her cardiology after hospital discharge Patient may request copies of results through medical records Patient was advised on the importance of low sodium diet and blood pressure control Go to the nearest ED if symptoms worsen or return Referrals: Sanjeev Espinoza MD [Staff Provider] - Armani Adame MD [Staff Provider] - Puneet Bond MD [Staff Provider] -
[2018-03-28 14:52] LABS: IRON 118 ug/dL (37-170)
[2018-03-28 15:02] LABS: TOTAL IRON BINDING CAPACITY 374 ug/dL (250-450)
[2018-03-28 15:39] LABS: % IRON SATURATION 31 (20-55)
--- NOTE | 2018-03-28 16:57 | CARD ---
APPROVED REPORT EXAM: Two-dimensional and M-mode echocardiogram with Doppler and color Doppler. Other Information Quality : GoodRhythm : INDICATION Syncope CODE STROKE ALERT 2D DIMENSIONS IVSd1.1 (0.7-1.1cm)LVDd2.6 (3.9-5.9cm) LVOT Diameter1.7 (1.8-2.4cm)PWd1.1 (0.7-1.1cm) LVDs1.9 (2.5-4.0cm)FS (%) 26.8 % LVEF (%)54.5 (>50%) M-Mode DIMENSIONS Left Atrium (MM)3.45 (2.5-4.0cm)Aortic Root2.54 (2.2-3.7cm) Aortic Cusp Exc.1.66 (1.5-2.0cm) Mitral Valve MV E Nqgalelt18.0cm/sMV A Wtwzjqpq10.7cm/sE/A ratio0.8 TDI E/Lateral E'0.0E/Medial E'0.0 Tricuspid Valve TR Peak Lqyegzoy248yd/sTR Peak Gr.[id number] LEFT VENTRICLE The left ventricle is normal size. There is normal left ventricular wall thickness. The left ventricular function is normal. The left ventricular ejection fraction is within the normal range. There is normal LV segmental wall motion. Transmitral Doppler flow pattern is Grade I-abnormal relaxation pattern. RIGHT VENTRICLE The right ventricle is normal size. There is normal right ventricular wall thickness. The right ventricular systolic function is normal. ATRIA The left atrium size is normal. The right atrium size is normal. AORTIC VALVE The aortic valve is not well visualized. No aortic regurgitation is present. There is no aortic valvular stenosis. MITRAL VALVE The mitral valve is normal in structure. There is no evidence of mitral valve prolapse. TRICUSPID VALVE The tricuspid valve is normal in structure. There is no tricuspid valve regurgitation noted. GREAT VESSELS The aortic root is normal in size. <Conclusion> The left ventricle is normal size. There is normal left ventricular wall thickness. The left ventricular function is normal. The left ventricular ejection fraction is within the normal range. There is normal LV segmental wall motion. Transmitral Doppler flow pattern is Grade I-abnormal relaxation pattern.
[2018-03-28 17:09] VITALS: BP 103/69; PULSE 89; TEMP 98; O2SAT 96
== END 2018-03-28 17:34 | disposition home or self-care (01) | DRG 69 ==
LOC: C.ER 15:09 → C.9E 16:52 → C.6T 17:50
PROVIDERS: ADMIT Internal Medicine; ATTEND Internal Medicine
DX: G45.9 Transient cerebral ischemic attack, unspecified (principal); D50.9 Iron deficiency anemia, unspecified; E03.9 Hypothyroidism, unspecified; I10 Essential (primary) hypertension; K21.9 Gastro-esophageal reflux disease without esophagitis; M50.30 Other cervical disc degeneration, unspecified cervical region